=== PATIENT | male | born 1940 | race Caucasian/White ===

== ENCOUNTER 2016-06-02 10:54 | Emergency (ER) | payer OTHER ==
[~2016-06-02] VITALS: Ht 180.3 cm; Wt 102.3 kg
[2016-06-02 12:32] LABS: HEMATOCRIT 43.3 % (38.0-50.0); MCH 29.5 PG (29.0-34.0); MCV 89.5 FL (86-99); MEAN PLAT.VOLUME 9.2 uM^3 (9.0-12.4); PLATELET COUNT 189 K/uL (156-360); RBC DIS.WIDTH-CV 13.8 % (11.8-14.6); RBC DIS.WIDTH-SD 45.1 % (39-53); RED BLOOD COUNT 4.84 M/uL (4.00-5.50); WHITE BLOOD COUNT 9.3 K/uL (4.1-10.2)
[2016-06-02 12:40] LABS: CHLORIDE 104 mEq/L (99-109); POTASSIUM 4.7 mEq/L (3.7-5.4); SODIUM 138 mEq/L (136-147)
[2016-06-02 12:41] LABS: GLUCOSE 118 mg/dL (70-99)
[2016-06-02 12:43] LABS: ANION GAP 9 MEQ/L (2-14)
[2016-06-02 12:46] LABS: GFR ESTIMATE (CALCULATED) 52 mL/min/; UREA NITROGEN (BUN) 24 mg/dL (9-23)
[2016-06-02 13:08] LABS: TROP-I INTERPRETATION NEGATIVE; TROPONIN-I 0.01 ng/mL (0.0-0.30)
[2016-06-02] MEDS ORDERED: LEVAQUIN500 MG PO (16:34)
[2016-06-02 16:45] VITALS: BP 157/86
[2016-06-03] MEDS ORDERED: GLIPIZIDE5 MG PO (23:16)
[2016-06-03] MEDS ORDERED: AMLODIPINE-BEN1 EAC3 PO (23:17)
[2016-06-03] MEDS ORDERED: ROSUVASTATIN CAL5 MG PO (23:17)
[2016-06-03] MEDS ORDERED: ANTIVERT25 MG PO (23:18)
[2016-06-03] MEDS ORDERED: LEVOFLOXACIN500 MG PO (23:18)
== END 2016-06-02 16:47 | disposition home or self-care (01) ==
LOC: EME 10:54
PROVIDERS: Emergency Medicine
DX: R42 Dizziness and giddiness (principal); J18.9 Pneumonia, unspecified organism; Z87.891 Personal history of nicotine dependence
CPT/HCPCS: 70551; 71020; 80048; 84484; 85027; 93005; 99281; 99285; J2060; J7030

== ENCOUNTER 2016-06-03 18:13 | Inpatient (IN) | payer OTHER ==
[~2016-06-03] VITALS: Ht 180.3 cm; Wt 101.0 kg
[~2016-06-03 18:13] MED LIST: LEVAQUIN500 MG PO
[2016-06-03 19:02] LABS: HEMATOCRIT 41.8 % (38.0-50.0); MCH 29.5 PG (29.0-34.0); MCHC 33.7 G/DL (30.0-36.0); MCV 87.4 FL (86-99); MEAN PLAT.VOLUME 9.6 uM^3 (9.0-12.4); PLATELET COUNT 189 K/uL (156-360); RBC DIS.WIDTH-CV 13.7 % (11.8-14.6); RBC DIS.WIDTH-SD 43.9 % (39-53); RED BLOOD COUNT 4.78 M/uL (4.00-5.50); WHITE BLOOD COUNT 10.2 K/uL (4.1-10.2)
[2016-06-03 19:13] LABS: CHLORIDE 104 mEq/L (99-109); POTASSIUM 5.3 mEq/L (3.7-5.4); SODIUM 137 mEq/L (136-147)
[2016-06-03 19:15] LABS: GLUCOSE 132 mg/dL (70-99)
[2016-06-03 19:17] LABS: ANION GAP 10 MEQ/L (2-14)
[2016-06-03 19:18] LABS: TOTAL BILIRUBIN 0.5 mg/dL (0.0-1.0)
[2016-06-03 19:19] LABS: ALKALINE PHOSPHATASE 65 IU/L (3-129); GFR ESTIMATE (CALCULATED) 48 mL/min/
[2016-06-03 19:20] LABS: UREA NITROGEN (BUN) 24 mg/dL (9-23)
[2016-06-03 21:56] LABS: INTER. NORMALIZED RATIO 1.1; PROTHROMBIN TIME 11.6 (9.2-11.2); PTT 29.4 (25-32)
[2016-06-03 21:58] LABS: Estimated Average Glucose 137 mg/dL (70-123); HEMOGLOBIN A1c (GLYCOHEMOGLOB) 6.4 % HGB (Below 5.7)
[2016-06-03 22:09] LABS: TROP-I INTERPRETATION NEGATIVE; TROPONIN-I < 0.01 ng/mL (0.0-0.30)
[2016-06-03 22:16] LABS: HDL CHOLESTEROL 43 MG/DL (Desirable>=40); LDL CHOLESTEROL 84 mg/dL (Desirable<100); NON-HDL CHOLESTEROL 111 mg/dL (Desirable<160); TOTAL CHOLESTEROL 154 mg/dL (Desirable<200); TRIGLYCERIDES 136 MG/DL (Normal: <150)
[2016-06-03] MEDS ORDERED: GLIPIZIDE5 MG PO (23:16)
[2016-06-03] MEDS ORDERED: ROSUVASTATIN CAL5 MG PO (23:17)
[2016-06-03] MEDS ORDERED: AMLODIPINE-BEN1 EAC3 PO (23:17)
[2016-06-03] MEDS ORDERED: ANTIVERT25 MG PO (23:18)
[2016-06-03] MEDS ORDERED: LEVOFLOXACIN500 MG PO (23:18)
[2016-06-03 23:40] LABS: ADD MIUA? YES; BILIRUBIN NEGATIVE; BLOOD SMALL; COLOR YELLOW ((YELLOW)); GLUCOSE (STRIP) NEGATIVE; KETONES 5; LEUKOCYTES NEGATIVE; NITRITE NEGATIVE; PROTEIN (STRIP) 30; SPECIFIC GRAVITY 1.013 (1.000-1.030); UROBILINOGEN 0.2 MG/DL (0.2-1.0)
[2016-06-03 23:43] LABS: BACTERIA NONE SEEN /HPF; EPITHELIAL CELLS NONE SEEN /HPF; MUCUS TRACE /LPF; RED BLOOD CELLS 0-5 /HPF (0-5); UCUL ADDED? NO; WHITE BLOOD CELLS NONE SEEN /HPF (0-5)
[2016-06-04 07:35] LABS: HDL CHOLESTEROL 43 MG/DL (Desirable>=40); LDL CHOLESTEROL 77 mg/dL (Desirable<100); NON-HDL CHOLESTEROL 103 mg/dL (Desirable<160); TOTAL CHOLESTEROL 146 mg/dL (Desirable<200); TRIGLYCERIDES 130 MG/DL (Normal: <150)
[2016-06-04 08:07] LABS: INTERNAL CONTROL VALID? YES
[2016-06-04 09:32] LABS: ANION GAP 10 MEQ/L (2-14); CHLORIDE 104 MEQ/L (99-109); GFR ESTIMATE (CALCULATED) 52 mL/min/; GLUCOSE 111 mg/dL (70-99); POTASSIUM 4.7 MEQ/L (3.7-5.4); SODIUM 136 MEQ/L (136-147); UREA NITROGEN (BUN) 19 mg/dL (9-23)
[2016-06-04 09:36] LABS: SAMPLE HEMOLYSIS CHECK 0; SAMPLE ICTERIC CHECK 0; SAMPLE LIPEMIA CHECK 0
[2016-06-04 12:10] LABS: POINT-OF-CARE METER ID UU13113702
[2016-06-04 15:57] LABS: POINT-OF-CARE METER ID UU13113702
[2016-06-04 18:38] VITALS: BP 126/58
[2016-06-04 21:30] LABS: POINT-OF-CARE METER ID UU14188625
[2016-06-04 23:15] VITALS: BP 128/60
[2016-06-05 03:51] VITALS: BP 125/66
[2016-06-05 07:57] LABS: POINT-OF-CARE METER ID UU14188625
[2016-06-05 07:59] VITALS: BP 133/74
[2016-06-05 07:59] LABS: HEMATOCRIT 40.8 % (38.0-50.0); MCH 29.3 PG (29.0-34.0); MCHC 33.1 G/DL (30.0-36.0); MCV 88.7 FL (86-99); MEAN PLAT.VOLUME 9.4 uM^3 (9.0-12.4); PLATELET COUNT 174 K/uL (156-360); RBC DIS.WIDTH-SD 45.2 % (39-53); WHITE BLOOD COUNT 8.8 K/uL (4.1-10.2)
[2016-06-05 08:29] LABS: ANION GAP 11 MEQ/L (2-14); CHLORIDE 103 MEQ/L (99-109); GFR ESTIMATE (CALCULATED) 48 mL/min/; GLUCOSE 112 mg/dL (70-99); POTASSIUM 4.5 MEQ/L (3.7-5.4); SAMPLE HEMOLYSIS CHECK 0; SAMPLE ICTERIC CHECK 0; SAMPLE LIPEMIA CHECK 0; SODIUM 140 MEQ/L (136-147); UREA NITROGEN (BUN) 22 mg/dL (9-23)
[2016-06-05 11:48] VITALS: BP 141/70
[2016-06-05 23:29] VITALS: BP 107/59
[2016-06-06 08:13] LABS: POINT-OF-CARE METER ID UU14188625
[2016-06-06] MEDS ORDERED: CEFDINIR300 MG PO (10:27)
[2016-06-06 10:48] VITALS: BP 126/70
== END 2016-06-06 10:58 | disposition home or self-care (01) | DRG 193 ==
LOC: EME 18:13 → EDOF 06-04 01:38 → 5SOUTH 06-04 01:38
PROVIDERS: Emergency Medicine; Family Medicine; Internal Medicine; Nurse Practitioner Family
DX: J18.9 Pneumonia, unspecified organism (principal); G92 Toxic encephalopathy; E86.0 Dehydration; R31.9 Hematuria, unspecified; I12.9 Hypertensive chronic kidney disease with stage 1 through stage 4 chronic kidney disease, or unspecified chronic kidney disease; N18.3 Chronic kidney disease, stage 3 (moderate); E11.22 Type 2 diabetes mellitus with diabetic chronic kidney disease; E78.5 Hyperlipidemia, unspecified; Z87.891 Personal history of nicotine dependence; Z86.73 Personal history of transient ischemic attack (TIA), and cerebral infarction without residual deficits
CPT/HCPCS: 70450; 71010; 80048; 80053; 80061; 81003; 82948; 83036; 83605; 84484; 85027; 85610; 85730; 87040; 87449; 93005; 93306; 93880; 99281; 99285; J0456; J0696; J1650; J1815; J1956; J2060; J2405; J7030; J7050

== ENCOUNTER 2016-06-20 09:04 | Inpatient (IN) | payer OTHER ==
[~2016-06-20] VITALS: Ht 152.4 cm; Wt 100.0 kg
[~2016-06-20 09:04] MED LIST changes: +AMLODIPINE-BEN1 EAC3 PO; +ANTIVERT25 MG PO; +CEFDINIR300 MG PO; +GLIPIZIDE5 MG PO; +LEVOFLOXACIN500 MG PO; +ROSUVASTATIN CAL5 MG PO
[2016-06-20] MEDS ORDERED: LISINOPRIL10 MG PO (09:18)
[2016-06-20 09:59] LABS: EOSINOPHIL (%) 0.8 % (0-5); EOSINOPHIL COUNT 0.1 K/uL (0-0.3); HEMATOCRIT 43.7 % (38.0-50.0); IMMATURE GRANULOCYTE (%) 3.1 % (0.0-0.7); IMMATURE GRANULOCYTE COUNT 0.3 K/uL; INSTRUMENT ABS NEUTROPHIL CT 5.5 K/uL; LYMPHOCYTE COUNT 2.1 K/uL (1.0-2.8); MCH 29.3 PG (29.0-34.0); MCHC 33.6 G/DL (30.0-36.0); MCV 87.2 FL (86-99); MEAN PLAT.VOLUME 9.2 uM^3 (9.0-12.4); MONOCYTE (%) 8.9 % (3-12); MONOCYTE COUNT 0.8 K/uL (0-0.8); NEUTROPHIL (%) 62.4 % (45-76); NEUTROPHIL COUNT 5.5 K/uL (1.8-6.4); PLATELET COUNT 188 K/uL (156-360); RBC DIS.WIDTH-CV 13.6 % (11.8-14.6); RBC DIS.WIDTH-SD 43.6 % (39-53); RED BLOOD COUNT 5.01 M/uL (4.00-5.50); WHITE BLOOD COUNT 8.8 K/uL (4.1-10.2)
[2016-06-20 10:09] LABS: INTER. NORMALIZED RATIO 1.1; PROTHROMBIN TIME 11.4 (9.2-11.2); PTT 29.3 (25-32)
[2016-06-20 10:10] LABS: CHLORIDE 102 mEq/L (99-109); POTASSIUM 4.3 mEq/L (3.7-5.4); SODIUM 137 mEq/L (136-147)
[2016-06-20 10:12] LABS: GLUCOSE 132 mg/dL (70-99)
[2016-06-20 10:13] LABS: ANION GAP 13 MEQ/L (2-14)
[2016-06-20 10:16] LABS: GFR ESTIMATE (CALCULATED) 52 mL/min/
[2016-06-20 10:17] LABS: UREA NITROGEN (BUN) 21 mg/dL (9-23)
[2016-06-20 10:21] LABS: TROP-I INTERPRETATION NEGATIVE; TROPONIN-I 0.01 ng/mL (0.0-0.30)
[2016-06-20 10:56] LABS: ADD MIUA? YES; BILIRUBIN NEGATIVE; BLOOD NEGATIVE; COLOR YELLOW ((YELLOW)); GLUCOSE (STRIP) NEGATIVE; KETONES NEGATIVE; LEUKOCYTES NEGATIVE; NITRITE NEGATIVE; PROTEIN (STRIP) 100; SPECIFIC GRAVITY 1.016 (1.000-1.030); UROBILINOGEN 0.2 MG/DL (0.2-1.0)
[2016-06-20 11:10] LABS: BACTERIA NONE SEEN /HPF; EPITHELIAL CELLS NONE SEEN /HPF; MUCUS NONE SEEN /LPF; UCUL ADDED? NO; WHITE BLOOD CELLS 0-5 /HPF (0-5)
[2016-06-20 11:24] LABS: INFLUENZA A VIRAL ANTIGEN NEGATIVE; INFLUENZA B VIRAL ANTIGEN NEGATIVE
[2016-06-20 12:00] LABS: HBSG INDEX 0.22; HPCA INDEX 0.22
[2016-06-20 12:01] LABS: ANTI-HEPATITIS A VIRUS (IGM) Nonreactive; HAV INDEX 0.18
[2016-06-20 12:02] LABS: ANTI-HEPATITIS B CORE (IGM) Nonreactive; HBC IgM INDEX 0.07; HIV INDEX 0.08; HIV-1/2 AB/AG COMBO Nonreactive
[2016-06-20 13:01] LABS: LYME DISEASE SEROLOGY SCREEN NEGATIVE (NEGATIVE); TREPONEMA ANTIBODY NEGATIVE (NEGATIVE)
[2016-06-20] MEDS ORDERED: CENTRUM SILVER1 EAC3 PO (14:44)
[2016-06-20 18:28] VITALS: BP 138/68
[2016-06-21 03:11] VITALS: BP 149/88
[2016-06-21 07:23] VITALS: BP 126/81
[2016-06-21 07:53] LABS: HEMATOCRIT 38.1 % (38.0-50.0); MCH 29.6 PG (29.0-34.0); MCHC 34.4 G/DL (30.0-36.0); MCV 86.2 FL (86-99); MEAN PLAT.VOLUME 9.7 uM^3 (9.0-12.4); PLATELET COUNT 175 K/uL (156-360); RBC DIS.WIDTH-CV 13.5 % (11.8-14.6); RBC DIS.WIDTH-SD 42.5 % (39-53); RED BLOOD COUNT 4.42 M/uL (4.00-5.50)
[2016-06-21 08:10] LABS: ALKALINE PHOSPHATASE 64 IU/L (3-129); ANION GAP 14 MEQ/L (2-14); CHLORIDE 102 MEQ/L (99-109); GFR ESTIMATE (CALCULATED) 52 mL/min/; GLUCOSE 163 mg/dL (70-99); POTASSIUM 4.2 MEQ/L (3.7-5.4); SAMPLE HEMOLYSIS CHECK 0; SAMPLE ICTERIC CHECK 0; SAMPLE LIPEMIA CHECK 0; SODIUM 137 MEQ/L (136-147); TOTAL BILIRUBIN 0.7 MG/DL (0.0-1.0); UREA NITROGEN (BUN) 21 mg/dL (9-23)
[2016-06-21 08:34] LABS: WHITE BLOOD COUNT 12.5 K/uL (4.1-10.2)
[2016-06-21 11:45] LABS: POINT-OF-CARE METER ID UU13113725
[2016-06-21 16:06] VITALS: BP 131/66
[2016-06-21 16:25] LABS: POINT-OF-CARE METER ID UU13113725
[2016-06-22 03:34] VITALS: BP 114/77
[2016-06-22 07:44] LABS: HEMATOCRIT 35.9 % (38.0-50.0); MCH 29.6 PG (29.0-34.0); MCHC 33.7 G/DL (30.0-36.0); MCV 87.8 FL (86-99); MEAN PLAT.VOLUME 9.4 uM^3 (9.0-12.4); PLATELET COUNT 157 K/uL (156-360); RBC DIS.WIDTH-CV 13.7 % (11.8-14.6); RBC DIS.WIDTH-SD 44.3 % (39-53); RED BLOOD COUNT 4.09 M/uL (4.00-5.50)
[2016-06-22 07:58] LABS: ANION GAP 8 MEQ/L (2-14); CHLORIDE 106 MEQ/L (99-109); GFR ESTIMATE (CALCULATED) > 59 mL/min/; GLUCOSE 160 mg/dL (70-99); POTASSIUM 4.7 MEQ/L (3.7-5.4); SAMPLE HEMOLYSIS CHECK 0; SAMPLE ICTERIC CHECK 0; SAMPLE LIPEMIA CHECK 0; SODIUM 136 MEQ/L (136-147); UREA NITROGEN (BUN) 29 mg/dL (9-23)
[2016-06-22 08:00] VITALS: BP 123/58
[2016-06-22 08:07] LABS: WHITE BLOOD COUNT 16.5 K/uL (4.1-10.2)
[2016-06-22 11:55] LABS: POINT-OF-CARE METER ID UU13113725
[2016-06-22 14:51] VITALS: BP 127/72
[2016-06-22 16:22] LABS: POINT-OF-CARE METER ID UU13113725
[2016-06-23] VITALS (7 sets, daily range): BP systolic 110–139; BP diastolic 55–81
[2016-06-23 07:13] LABS: EOSINOPHIL (%) 0 % (0-5); HEMATOCRIT 36.4 % (38.0-50.0); IMMATURE GRANULOCYTE (%) 2.4 % (0.0-0.7); IMMATURE GRANULOCYTE COUNT 0.4 K/uL; LYMPHOCYTE COUNT 2.1 K/uL (1.0-2.8); MCH 29.6 PG (29.0-34.0); MCHC 33.8 G/DL (30.0-36.0); MCV 87.7 FL (86-99); MEAN PLAT.VOLUME 9.9 uM^3 (9.0-12.4); MONOCYTE (%) 3.8 % (3-12); MONOCYTE COUNT 0.6 K/uL (0-0.8); NEUTROPHIL (%) 79.7 % (45-76); PLATELET COUNT 170 K/uL (156-360); RBC DIS.WIDTH-CV 14.1 % (11.8-14.6); RBC DIS.WIDTH-SD 45.1 % (39-53); RED BLOOD COUNT 4.15 M/uL (4.00-5.50)
[2016-06-23 07:35] LABS: ALKALINE PHOSPHATASE 47 IU/L (3-129); ANION GAP 9 MEQ/L (2-14); CHLORIDE 104 MEQ/L (99-109); GFR ESTIMATE (CALCULATED) 57 mL/min/; GLUCOSE 153 mg/dL (70-99); POTASSIUM 4.4 MEQ/L (3.7-5.4); SAMPLE HEMOLYSIS CHECK 0; SAMPLE ICTERIC CHECK 0; SAMPLE LIPEMIA CHECK 0; SODIUM 137 MEQ/L (136-147); TOTAL BILIRUBIN 0.6 MG/DL (0.0-1.0); UREA NITROGEN (BUN) 32 mg/dL (9-23)
[2016-06-23 11:22] LABS: POINT-OF-CARE METER ID UU13113725
[2016-06-23 16:27] LABS: POINT-OF-CARE METER ID UU13113725
[2016-06-24 05:44] LABS: POINT-OF-CARE METER ID UU13113725
[2016-06-24 06:39] LABS: HEMATOCRIT 38.3 % (38.0-50.0); MCH 29.6 PG (29.0-34.0); MCHC 34.2 G/DL (30.0-36.0); MCV 86.7 FL (86-99); PLATELET COUNT 171 K/uL (156-360); RBC DIS.WIDTH-CV 13.8 % (11.8-14.6); RBC DIS.WIDTH-SD 42.8 % (39-53); RED BLOOD COUNT 4.42 M/uL (4.00-5.50); WHITE BLOOD COUNT 13.6 K/uL (4.1-10.2)
[2016-06-24 07:05] LABS: ANION GAP 11 MEQ/L (2-14); CHLORIDE 102 MEQ/L (99-109); GFR ESTIMATE (CALCULATED) 57 mL/min/; GLUCOSE 154 mg/dL (70-99); POTASSIUM 4.7 MEQ/L (3.7-5.4); SAMPLE HEMOLYSIS CHECK 0; SAMPLE ICTERIC CHECK 0; SAMPLE LIPEMIA CHECK 0; SODIUM 137 MEQ/L (136-147); UREA NITROGEN (BUN) 33 mg/dL (9-23)
[2016-06-24 07:09] VITALS: BP 113/64
[2016-06-24 15:28] VITALS: BP 129/74
[2016-06-24 23:18] VITALS: BP 141/76
[2016-06-25 06:22] LABS: POINT-OF-CARE METER ID UU13113725
[2016-06-25 06:56] LABS: HEMATOCRIT 41.5 % (38.0-50.0); MCH 29.7 PG (29.0-34.0); MCHC 34.2 G/DL (30.0-36.0); MCV 86.8 FL (86-99); PLATELET COUNT 190 K/uL (156-360); RBC DIS.WIDTH-CV 13.6 % (11.8-14.6); RBC DIS.WIDTH-SD 43.2 % (39-53); RED BLOOD COUNT 4.78 M/uL (4.00-5.50); WHITE BLOOD COUNT 13.8 K/uL (4.1-10.2)
[2016-06-25 07:03] VITALS: BP 107/60
[2016-06-25 07:14] LABS: ANION GAP 9 MEQ/L (2-14); CHLORIDE 100 MEQ/L (99-109); GFR ESTIMATE (CALCULATED) 52 mL/min/; GLUCOSE 165 mg/dL (70-99); POTASSIUM 4.8 MEQ/L (3.7-5.4); SAMPLE HEMOLYSIS CHECK 0; SAMPLE ICTERIC CHECK 0; SAMPLE LIPEMIA CHECK 0; SODIUM 136 MEQ/L (136-147); UREA NITROGEN (BUN) 37 mg/dL (9-23)
[2016-06-25 15:16] VITALS: BP 133/77
[2016-06-25 23:06] VITALS: BP 110/57
[2016-06-26 05:39] LABS: MCH 29.3 PG (29.0-34.0); MCV 86.1 FL (86-99); PLATELET COUNT 181 K/uL (156-360); RBC DIS.WIDTH-CV 13.5 % (11.8-14.6); RBC DIS.WIDTH-SD 42.5 % (39-53); RED BLOOD COUNT 4.88 M/uL (4.00-5.50); WHITE BLOOD COUNT 15.8 K/uL (4.1-10.2)
[2016-06-26 06:03] LABS: ANION GAP 11 MEQ/L (2-14); CHLORIDE 101 MEQ/L (99-109); GFR ESTIMATE (CALCULATED) 57 mL/min/; GLUCOSE 171 mg/dL (70-99); POTASSIUM 4.7 MEQ/L (3.7-5.4); SAMPLE HEMOLYSIS CHECK 0; SAMPLE ICTERIC CHECK 0; SAMPLE LIPEMIA CHECK 0; SODIUM 135 MEQ/L (136-147); UREA NITROGEN (BUN) 43 mg/dL (9-23)
[2016-06-26 07:21] VITALS: BP 123/62
[2016-06-26 15:26] VITALS: BP 130/70
[2016-06-26 20:43] VITALS: BP 130/65
[2016-06-26 23:10] VITALS: BP 130/78
[2016-06-27 08:13] VITALS: BP 116/63
[2016-06-27] MEDS ORDERED: DEXAMETHASONE4 MG PO (09:47)
== END 2016-06-27 12:40 | disposition home health service (06) | DRG 180 ==
LOC: EME → EDBD 09:04 → EDOF 15:07 → 5EAST 15:07
PROVIDERS: Emergency Medicine; Hospitalist; Internal Medicine
PROC: 0BBC3ZX Excision of Right Upper Lung Lobe, Percutaneous Approach, Diagnostic (ICD-10-PCS; principal; 2016-06-23)
DX: C34.11 Malignant neoplasm of upper lobe, right bronchus or lung (principal); C79.31 Secondary malignant neoplasm of brain; C64.1 Malignant neoplasm of right kidney, except renal pelvis; G93.40 Encephalopathy, unspecified; I12.9 Hypertensive chronic kidney disease with stage 1 through stage 4 chronic kidney disease, or unspecified chronic kidney disease; N18.3 Chronic kidney disease, stage 3 (moderate); E78.2 Mixed hyperlipidemia; Z86.73 Personal history of transient ischemic attack (TIA), and cerebral infarction without residual deficits; E11.22 Type 2 diabetes mellitus with diabetic chronic kidney disease; Z87.891 Personal history of nicotine dependence; Z80.42 Family history of malignant neoplasm of prostate
CPT/HCPCS: 36415; 70450; 70552; 71010; 71250; 74177; 77012; 77290; 77307; 77331; 77334; 77412; 77417; 80048; 80053; 80074; 81003; 82085 90; 82140; 82550; 82607; 82948; 84439; 84443; 84484; 85025; 85027; 85610; 85651; 85730; 86140; 86618; 86703; 86780; 87040; 87502; 88305; 88341 TC; 88342 TC; 93005; 97530 GO; 99202; 99281; 99285; C9113; J1100; J1170; J1630; J1650; J1815; J2060; J3010; J7030; J8540; S0028

== ENCOUNTER 2016-07-03 08:31 | Inpatient (IN) | payer OTHER ==
[~2016-07-03] VITALS: Ht 180.3 cm; Wt 100.0 kg
[~2016-07-03 08:31] MED LIST changes: +CENTRUM SILVER1 EAC3 PO; +DEXAMETHASONE4 MG PO; +LISINOPRIL10 MG PO
[2016-07-03 09:23] LABS: HEMATOCRIT 48.7 % (38.0-50.0); MCH 29.8 PG (29.0-34.0); MCHC 34.1 G/DL (30.0-36.0); MCV 87.4 FL (86-99); MEAN PLAT.VOLUME 9.2 uM^3 (9.0-12.4); PLATELET COUNT 201 K/uL (156-360); RBC DIS.WIDTH-CV 13.8 % (11.8-14.6); RBC DIS.WIDTH-SD 44.2 % (39-53); RED BLOOD COUNT 5.57 M/uL (4.00-5.50)
[2016-07-03 09:27] LABS: WHITE BLOOD COUNT 35.9 K/uL (4.1-10.2)
[2016-07-03 09:29] LABS: CHLORIDE 100 mEq/L (99-109); POTASSIUM 5.6 mEq/L (3.7-5.4); SODIUM 130 mEq/L (136-147)
[2016-07-03 09:33] LABS: ANION GAP 14 MEQ/L (2-14); TOTAL BILIRUBIN 0.8 mg/dL (0.0-1.0)
[2016-07-03 09:35] LABS: ALKALINE PHOSPHATASE 63 IU/L (3-129); GFR ESTIMATE (CALCULATED) 42 mL/min/
[2016-07-03 09:36] LABS: UREA NITROGEN (BUN) 59 mg/dL (9-23)
[2016-07-03 09:39] LABS: ADD MIUA? YES; BILIRUBIN NEGATIVE; BLOOD NEGATIVE; COLOR YELLOW ((YELLOW)); GLUCOSE (STRIP) >=500; KETONES NEGATIVE; LEUKOCYTES NEGATIVE; NITRITE NEGATIVE; PROTEIN (STRIP) 30; SPECIFIC GRAVITY 1.018 (1.000-1.030); UROBILINOGEN 0.2 MG/DL (0.2-1.0)
[2016-07-03 09:45] LABS: GLUCOSE 429 mg/dL (70-99)
[2016-07-03 09:49] LABS: BACTERIA NONE SEEN /HPF; EPITHELIAL CELLS NONE SEEN /HPF; MUCUS TRACE /LPF; RED BLOOD CELLS 0-5 /HPF (0-5); RENAL EPITHELIAL CELLS 1+ /HPF; WHITE BLOOD CELLS 0-5 /HPF (0-5)
[2016-07-03 11:02] LABS: ABS NEUTROPHIL COUNT 28.9; BASOPHILS 0.5 %; EOSINOPHIL ABS CT 0; METAMYELOCYTES 2.5 %; PLAT.SUFFICIENCY ADEQUATE; SEG.NEUTROPHILS 77.5 % (46.0-76.0)
[2016-07-03 12:06] LABS: POINT-OF-CARE METER ID UU13113702
[2016-07-03 13:14] VITALS: BP 129/76
[2016-07-03 15:21] LABS: POINT-OF-CARE METER ID UU13113725
[2016-07-03 15:36] VITALS: BP 116/70
[2016-07-03 20:03] VITALS: BP 132/76
[2016-07-03 21:34] LABS: POINT-OF-CARE METER ID UU13113725
[2016-07-04 02:02] LABS: POINT-OF-CARE METER ID UU13113725
[2016-07-04 03:19] VITALS: BP 106/60
[2016-07-04 06:50] VITALS: BP 139/69
[2016-07-04 08:05] LABS: HEMATOCRIT 42.6 % (38.0-50.0); MCH 30.5 PG (29.0-34.0); MCV 87.3 FL (86-99); MEAN PLAT.VOLUME 9.5 uM^3 (9.0-12.4); PLATELET COUNT 170 K/uL (156-360); RBC DIS.WIDTH-SD 44.6 % (39-53); RED BLOOD COUNT 4.88 M/uL (4.00-5.50)
[2016-07-04 08:21] LABS: WHITE BLOOD COUNT 24.8 K/uL (4.1-10.2)
[2016-07-04 08:23] LABS: ANION GAP 11 MEQ/L (2-14); CHLORIDE 100 MEQ/L (99-109); GFR ESTIMATE (CALCULATED) 57 mL/min/; POTASSIUM 5.4 MEQ/L (3.7-5.4); SAMPLE HEMOLYSIS CHECK 0; SAMPLE ICTERIC CHECK 0; SAMPLE LIPEMIA CHECK 0; SODIUM 134 MEQ/L (136-147); UREA NITROGEN (BUN) 44 mg/dL (9-23)
[2016-07-04 08:25] LABS: GLUCOSE 163 mg/dL (70-99)
[2016-07-04 10:44] VITALS: BP 135/80
[2016-07-04 14:54] LABS: POINT-OF-CARE METER ID UU13113725
[2016-07-04 15:00] VITALS: BP 141/68
[2016-07-04 18:50] LABS: POINT-OF-CARE METER ID UU13113725
[2016-07-04 21:28] LABS: POINT-OF-CARE METER ID UU13113725
[2016-07-04 23:55] VITALS: BP 113/59
[2016-07-05 02:46] LABS: POINT-OF-CARE METER ID UU13113725
[2016-07-05 06:36] LABS: POINT-OF-CARE METER ID UU13113725
[2016-07-05 07:00] VITALS: BP 116/57
[2016-07-05 07:44] LABS: HEMATOCRIT 41.6 % (38.0-50.0); MCH 29.7 PG (29.0-34.0); MCHC 34.4 G/DL (30.0-36.0); MCV 86.3 FL (86-99); MEAN PLAT.VOLUME 9.3 uM^3 (9.0-12.4); PLATELET COUNT 156 K/uL (156-360); RBC DIS.WIDTH-CV 13.7 % (11.8-14.6); RED BLOOD COUNT 4.82 M/uL (4.00-5.50); WHITE BLOOD COUNT 19.6 K/uL (4.1-10.2)
[2016-07-05 08:44] LABS: ANION GAP 10 MEQ/L (2-14); CHLORIDE 99 MEQ/L (99-109); GFR ESTIMATE (CALCULATED) > 59 mL/min/; GLUCOSE 178 mg/dL (70-99); POTASSIUM 5.7 MEQ/L (3.7-5.4); SAMPLE HEMOLYSIS CHECK 1; SAMPLE ICTERIC CHECK 0; SAMPLE LIPEMIA CHECK 0; SODIUM 133 MEQ/L (136-147); UREA NITROGEN (BUN) 40 mg/dL (9-23)
[2016-07-05 10:20] LABS: POINT-OF-CARE METER ID UU13113725
[2016-07-05 15:24] VITALS: BP 108/59
[2016-07-05 18:26] LABS: POINT-OF-CARE METER ID UU13113725
[2016-07-05 23:09] VITALS: BP 136/77
[2016-07-06 07:20] VITALS: BP 138/76
[2016-07-06] MEDS ORDERED: LEVEMIR100 UNIT/2 SC (08:46)
[2016-07-06] MEDS ORDERED: DEXAMETHASONE4 MG PO (09:16)
[2016-07-06 11:10] LABS: POINT-OF-CARE METER ID UU13113725
[2016-07-07] MEDS ORDERED: GLIPIZIDE5 MG PO (18:00)
[2016-07-07] MEDS ORDERED: LEVEMIR100 UNIT/2 SC (18:01)
== END 2016-07-06 15:00 | disposition home health service (06) | DRG 55 ==
LOC: EME 08:31 → EDOF 10:38 → 5EAST 10:38
PROVIDERS: Emergency Medicine; Internal Medicine; Physician Assistant
DX: C79.31 Secondary malignant neoplasm of brain (principal); C64.9 Malignant neoplasm of unspecified kidney, except renal pelvis; C34.90 Malignant neoplasm of unspecified part of unspecified bronchus or lung; N17.9 Acute kidney failure, unspecified; E87.1 Hypo-osmolality and hyponatremia; E87.5 Hyperkalemia; R73.9 Hyperglycemia, unspecified; T38.0X5A Adverse effect of glucocorticoids and synthetic analogues, initial encounter; E78.5 Hyperlipidemia, unspecified; I12.9 Hypertensive chronic kidney disease with stage 1 through stage 4 chronic kidney disease, or unspecified chronic kidney disease; N18.3 Chronic kidney disease, stage 3 (moderate); E86.0 Dehydration; Z87.891 Personal history of nicotine dependence; Z95.810 Presence of automatic (implantable) cardiac defibrillator
CPT/HCPCS: 70450; 71010; 77412; 80048; 80053; 81003; 82948; 84132 91; 85025; 85027; 87040; 99281; 99285; J1100; J1650; J1815; J2060; J2270; J7030

== ENCOUNTER 2016-07-07 15:54 | Inpatient (IN) | payer OTHER ==
[~2016-07-07] VITALS: Ht 175.3 cm; Wt 90.8 kg
[~2016-07-07 15:54] MED LIST changes: +LEVEMIR100 UNIT/2 SC
[2016-07-07 16:50] LABS: HEMATOCRIT 43.9 % (38.0-50.0); MCH 29.8 PG (29.0-34.0); MCHC 34.9 G/DL (30.0-36.0); MCV 85.6 FL (86-99); MEAN PLAT.VOLUME 9.1 uM^3 (9.0-12.4); PLATELET COUNT 145 K/uL (156-360); RBC DIS.WIDTH-CV 13.9 % (11.8-14.6); RBC DIS.WIDTH-SD 43.6 % (39-53); RED BLOOD COUNT 5.13 M/uL (4.00-5.50); WHITE BLOOD COUNT 19.4 K/uL (4.1-10.2)
[2016-07-07 17:05] LABS: CHLORIDE 99 mEq/L (99-109); SODIUM 130 mEq/L (136-147)
[2016-07-07 17:07] LABS: GLUCOSE 358 mg/dL (70-99)
[2016-07-07 17:09] LABS: ANION GAP 13 MEQ/L (2-14)
[2016-07-07 17:11] LABS: GFR ESTIMATE (CALCULATED) 57 mL/min/
[2016-07-07 17:12] LABS: UREA NITROGEN (BUN) 52 mg/dL (9-23)
[2016-07-07 17:16] LABS: TROP-I INTERPRETATION NEGATIVE; TROPONIN-I 0.09 ng/mL (0.0-0.30)
[2016-07-07] MEDS ORDERED: GLIPIZIDE5 MG PO (18:00)
[2016-07-07] MEDS ORDERED: LEVEMIR100 UNIT/2 SC (18:01)
[2016-07-07 22:34] VITALS: BP 159/80
[2016-07-08 02:30] LABS: HEMATOCRIT 41.1 % (38.0-50.0); MCH 29.4 PG (29.0-34.0); MCHC 34.1 G/DL (30.0-36.0); MCV 86.2 FL (86-99); MEAN PLAT.VOLUME 9.1 uM^3 (9.0-12.4); PLATELET COUNT 132 K/uL (156-360); RBC DIS.WIDTH-CV 13.8 % (11.8-14.6); RBC DIS.WIDTH-SD 43.5 % (39-53); RED BLOOD COUNT 4.77 M/uL (4.00-5.50); WHITE BLOOD COUNT 17.3 K/uL (4.1-10.2)
[2016-07-08 02:38] LABS: CHLORIDE 104 mEq/L (99-109); POTASSIUM 5.2 mEq/L (3.7-5.4); SODIUM 135 mEq/L (136-147)
[2016-07-08 02:41] LABS: ANION GAP 9 MEQ/L (2-14); GLUCOSE 178 mg/dL (70-99)
[2016-07-08 02:42] LABS: TOTAL BILIRUBIN 0.9 mg/dL (0.0-1.0)
[2016-07-08 02:44] LABS: ALKALINE PHOSPHATASE 43 IU/L (3-129); GFR ESTIMATE (CALCULATED) > 59 mL/min/
[2016-07-08 02:45] LABS: UREA NITROGEN (BUN) 46 mg/dL (9-23)
[2016-07-08 03:29] VITALS: BP 118/69
[2016-07-08 06:31] LABS: POINT-OF-CARE METER ID UU14188625
[2016-07-08 08:05] VITALS: BP 114/65
[2016-07-08 11:45] VITALS: BP 131/73
[2016-07-08 15:27] VITALS: BP 126/71
[2016-07-08 19:47] VITALS: BP 118/73
[2016-07-08 21:15] LABS: POINT-OF-CARE METER ID UU14174225
[2016-07-08 23:32] VITALS: BP 141/66
[2016-07-09 03:32] VITALS: BP 121/74
[2016-07-09 07:16] LABS: HEMATOCRIT 40.4 % (38.0-50.0); MCH 29.6 PG (29.0-34.0); MCHC 33.7 G/DL (30.0-36.0); MEAN PLAT.VOLUME 9.4 uM^3 (9.0-12.4); PLATELET COUNT 120 K/uL (156-360); RBC DIS.WIDTH-CV 14.1 % (11.8-14.6); RBC DIS.WIDTH-SD 45.1 % (39-53); RED BLOOD COUNT 4.59 M/uL (4.00-5.50); WHITE BLOOD COUNT 16.9 K/uL (4.1-10.2)
[2016-07-09 07:35] VITALS: BP 128/74
[2016-07-09 07:39] LABS: ANION GAP 9 MEQ/L (2-14); CHLORIDE 101 MEQ/L (99-109); GFR ESTIMATE (CALCULATED) 57 mL/min/; GLUCOSE 188 mg/dL (70-99); POTASSIUM 5.2 MEQ/L (3.7-5.4); SAMPLE HEMOLYSIS CHECK 0; SAMPLE ICTERIC CHECK 0; SAMPLE LIPEMIA CHECK 0; SODIUM 133 MEQ/L (136-147); UREA NITROGEN (BUN) 44 mg/dL (9-23)
[2016-07-09 08:10] LABS: POINT-OF-CARE METER ID UU14188625
[2016-07-09 11:33] VITALS: BP 138/76
[2016-07-09 11:49] LABS: POINT-OF-CARE METER ID UU14188625
[2016-07-09 15:04] VITALS: BP 145/71
[2016-07-09 17:12] LABS: POINT-OF-CARE METER ID UU14174225
[2016-07-09 20:00] VITALS: BP 104/64
[2016-07-10 00:01] VITALS: BP 140/84
[2016-07-10 03:48] VITALS: BP 133/77
[2016-07-10 07:32] VITALS: BP 113/55
[2016-07-10 11:10] VITALS: BP 126/65
[2016-07-10] MEDS ORDERED: ATIVAN0.5 MG PO (13:02)
== END 2016-07-10 13:55 | disposition hospice, home (50) | DRG 55 ==
LOC: EME → EDBD 15:54 → EDOF 20:55 → 5SOUTH 20:55
PROVIDERS: Emergency Medicine; Family Medicine; Hospitalist; Internal Medicine; Physician Assistant Medical
DX: C79.31 Secondary malignant neoplasm of brain (principal); C64.1 Malignant neoplasm of right kidney, except renal pelvis; R56.9 Unspecified convulsions; Z87.891 Personal history of nicotine dependence; E11.65 Type 2 diabetes mellitus with hyperglycemia; E87.2 Acidosis; I10 Essential (primary) hypertension; E86.0 Dehydration; C34.91 Malignant neoplasm of unspecified part of right bronchus or lung
CPT/HCPCS: 70450; 71010; 77336; 77412; 80048; 80053; 81003; 82140; 82948; 83605; 84484; 85027; 87040; 92610 GN; 93005; 97530 GO; 97530 GP; 99281; 99285; J1100; J1650; J1815; J1953; J2060; J7030; J7050